=== PATIENT | male | born 1940 | race Caucasian/White ===

== ENCOUNTER → 2020-02-01 | Outpatient (CLI) | payer OTHER ==
[~2020-02-01] VITALS: Ht 177.8 cm; Wt 68.0 kg
[~2020-02-01] MED LIST: ASPI-543 PO; CIPR500T4 PO; FERR-20 PO; FURO20TA3 PO; MET25T PO
== END | disposition home or self-care (01) ==
LOC: SUR 09:00 → EDSTATUS 02-05 12:00
PROVIDERS: ATTEND Urology
DX: Z01.818 Encounter for other preprocedural examination (principal); Z20.828 Contact with and (suspected) exposure to other viral communicable diseases; Z98.890 Other specified postprocedural states; Z79.899 Other long term (current) drug therapy